=== PATIENT | male | born 1945 | race Caucasian/White ===

== ENCOUNTER 2023-06-04 14:38 | Inpatient (IN) | payer MEDICARE, OTHER, SELFPAY ==
[2023-06-04] VITALS (14 sets, daily range): BP systolic 100–130; BP diastolic 41–105; BMI 24.2
--- NOTE | 2023-06-04 10:38 | ED.GENMED ---
History of Present Illness
General
Chief Complaint: Breathing Problem
Time Seen by Provider: 06/04/23 10:31
Travel History
Have you had any contact with someone who has COVID-19?: No
Do you have any symptoms of coronavirus? Fever > 100 degrees, chills, cough, shortness of breath, sore throat, loss of taste or smell, muscle aches, or headache?: No
History of Present Illness
History of Present Illness:
78-year-old male with history of COPD and chronic kidney disease presents to the emergency department for evaluation of progressive worsening shortness of breath over the past 3 days. Reports cough has been productive. He has chronic shortness of
breath due to COPD. Breathing is worse when lying supine or with exertion. Denies chest pain, fever, chills, sweats, back pain, or leg swelling. No ill contacts at home.
Review of Systems
Review of Systems
Allergies reviewed?: Yes
All Other Systems: ROS reviewed and negative except as documented in HPI and ROS
Phy Exam
Physical Exam
Physical Exam:
GEN: Ill-appearing but no immediate distress
Eyes: PERRLA, EOMs intact, no scleral icterus
HENT: NCAT, oral mucosa moist, no JVD, no cervical adenopathy.
Lungs: Tachypneic with pursed lip breathing, arrives to exam room on oxygen. Grossly diminished breath sounds with scant expiratory wheezes
Cardiac: Mildly tachycardic, regular
Neuro: AO x 3, no focal deficits to BUE/BLE, normal sensation throughout
MSK: No gross deformity or ecchymosis. No edema. No digital clubbing
Skin: No rashes, petechiae. Normal color, no pallor or jaundice.
Psych: Calm, cooperative, proper hygiene
Scores
Heart Failure Risk
Heart Failure Risk Score: Not Applicable
Course
Orders/Labs/Results
Orders:
Orders
06/04/23 10:03
Electrocardiogram (*1) Urgent
Reason for Study: Shortness of Breath
EKG- Treatment ONCE
06/04/23 10:36
Albuterol Sulfate [Ventolin Nebules] 10 mg INH R NOW STA
Ipratropium Nebs [Atrovent Nebules] 1 mg INH R NOW STA
06/04/23 10:37
CR Chest - 2 Views Urgent
Comment:
Reason For Exam: SOB
06/04/23 11:11
COVID-19 Antigen Urgent
Source: Nasal Swab
Complete Blood Count/With Diff Urgent
Comprehensive Metabolic Panel Urgent
NT-proBNP Urgent
Troponin I Urgent
Influenza A+B Rapid Molecular Urgent
HARPREET Source: Nasal Swab
Specimen Description:
06/04/23 12:15
MethylPREDNISolone PF [Solu-Medrol Pf] 60 mg IV NOW STA
06/04/23 14:18
Admit/Transfer Patient As Directed
Co-Sign Provider:
Level of Care: Inpatient admission
Assign to:: Telemetry
Physician / Group: Олег
Diagnosis: COPD exacerbation
Reason for Telemetry: Other
Other Reason for Telemetry: Hypoxia
Date to Stop Telemetry: 06/06/23
Time to Stop Telemetry: 11:00
Reason for Hospitalization: Above
Expected length of stay greater than two midnights?: Yes
ELOS- Estimated Length of Stay in days: 2
I certify the patient meets the requirements for IP care: Yes
06/04/23 14:19
Code Status As Directed
Resuscitation Status: Full Code
06/06/23 11:00
DC Protocol for Telemetry ONCE
Abnormal Lab Results
06/04/23
11:11
WBC 13.3 H 10^3/uL
(4.8-10.8)
RBC 4.37 L 10^6/uL
(4.70-6.10)
Hct 38.6 L %
(39.0-52.0)
Abs Immat Gran (auto) 0.1 H 10^3/uL
(0-0.05)
Absolute Neuts (auto) 10.5 H 10^3/uL
(1.4-6.5)
Absolute Lymphs (auto) 1.0 L 10^3/uL
(1.2-3.4)
Absolute Monos (auto) 1.7 H 10^3/uL
(0.1-0.6)
Immature Gran % 0.7 H %
(0-0.5)
Neutrophils % 78.8 H %
(42.2-75.2)
Lymphocytes % 7.4 L %
(20.5-51.1)
Monocytes % 12.6 H %
(1.7-9.3)
Sodium 131 L mmol/L
(135-145)
BUN 30 H mg/dl
(9-20)
Creatinine 1.6 H mg/dL
(0.7-1.3)
Glucose 103 H mg/dl
(70-99)
06/04/23 11:11
06/04/23 11:11
Vital Signs
Initial and Last Documented VS:
Initial Vital Signs
Temp Pulse Resp BP Pulse Ox
98.3 F 101 22 130/105 93
06/04/23 10:00 06/04/23 10:00 06/04/23 10:00 06/04/23 10:00 06/04/23 10:00
Last Documented Vital Signs
Temp Pulse Resp BP Pulse Ox
98.3 F 91 14 121/47 92
06/04/23 10:00 06/04/23 17:30 06/04/23 17:00 06/04/23 17:00 06/04/23 17:30
MDM/Problems Addressed
MDM/Problems Addressed:
78-year-old male presents with shortness of breath. He does have scant expiratory wheezing is noted to be hypoxic on room air on arrival. Chest x-ray independently interpreted by me shows chronic changes with no acute cardiopulmonary disease.
Does have mild leukocytosis however no fever or evidence for infiltrate. Labs are otherwise reassuring, doubt cardiogenic etiology. He has no chest pain thus I do not suspect pulmonary embolism. Given his increased work of breathing we will admit
him for IV steroids and further bronchodilator treatment for acute COPD exacerbation
Comment
Comment:
EKG independently interpreted by me shows normal sinus rhythm at a rate of 89, marked limitation secondary to patient motion artifact however no gross ST changes concerning for ischemia
*Critical Care Note
Total Time (30-74mins, 75-104mins- exclusive of procedures): 30 minutes
comment:
Critical care time: 30 minutes
Critical care time was exclusive of: Separately billable procedures, treating other patients, and teaching time
Critical care was necessary to treat or prevent imminent or life-threatening deterioration of the following conditions: Acute respiratory failure with hypoxia, bronchospasm
Critical care time spent personally by me on the following activities:
[x] Review of old charts
[x] Obtaining history from patient or surrogate
[x] Ordering and review of the laboratory studies
[x] Ordering and review of radiographic studies
[x] Ordering and performing treatments and interventions
[x] Patient patient's response to treatment
[x] Development of treatment plan with patient or surrogate
ED Attending Note
-
Portions of this chart may have been created with voice recognition software.� Occasional wrong word or��sound alike� substitutions may have occurred due to the inherent limitations of voice recognition software.
Discharge Plan
Departure
Patient Disposition: Admit
Date of Disposition: 06/04/23
Time of Disposition: 12:15
Admit to: Med/Surg
Presentation/result/management discussed w/ accepting MD/DO: Hospitalist
Discharge Problem:
Asthma exacerbation in COPD
Interventions
Interventions:
*Risk Screen - Suicide Last Done: 06/04/23 13:00
*General Assessment Last Done: 06/04/23 13:00
*Neglect/Abuse Screening Last Done: 06/04/23 13:00
ED- Fall Risk Assessment Last Done: 06/04/23 13:00
*ED COVID-19 Vaccine History Last Done: 06/04/23 10:00
ED- Cardiac Assessment Last Done: 06/04/23 13:42
ED- Pulmonary Assessment Last Done: 06/04/23 11:33
[2023-06-04] MEDS: ATROVENT NEBULES 1 MG INH (11:21)
[2023-06-04] MEDS: VENTOLIN NEBULES 10 MG INH (11:23)
[2023-06-04 11:35] LABS: % Basophils 0.3 % (0-2); % Eosinophils 0.2 % (0-6); % Immature Granulocytes 0.7 % (0-0.5); % Lymphocytes 7.4 % (20.5-51.1); % Monocytes 12.6 % (1.7-9.3); % Neutrophils 78.8 % (42.2-75.2); Absolute Immature Granulocytes 0.1 10^3/uL (0-0.05); Absolute Monocytes 1.7 10^3/uL (0.1-0.6); Absolute Neutrophils 10.5 10^3/uL (1.4-6.5); Hematocrit 38.6 % (39.0-52.0); Hemoglobin 13.5 g/dL (13.0-18.0); Mean Corpuscular Hgb 30.9 pg (27.0-31.0); Mean Corpuscular Volume 88.3 fL (80.0-94.0); Mean Platelet Volume 9.5 fL (7.4-10.4); Nucleated Red Blood Cells % 0 % (-); Platelet Count 170 10^3/uL (130-400); Red Blood Cell Count 4.37 10^6/uL (4.70-6.10); Red Cell Dist. Width 13.4 % (11.5-14.5); White Blood Cell Count 13.3 10^3/uL (4.8-10.8)
[2023-06-04 11:45] LABS: ALT (SGPT) 15 U/L (0-50); AST (SGOT) 28 U/L (17-59); Albumin 4.6 g/dl (3.5-5.0); Alkaline Phosphatase 103 U/L (38-126); Blood Urea Nitrogen 30 mg/dl (9-20); Carbon Dioxide 22 mmol/L (22-30); Chloride 98 mmol/L (98-107); Glucose 103 mg/dl (70-99); Potassium 4.4 mmol/L (3.5-5.1); Sodium 131 mmol/L (135-145); Total Protein 7.7 g/dl (6.3-8.2)
[2023-06-04 11:50] LABS: COVID-19 Antigen Negative (Negative)
[2023-06-04 11:57] LABS: NT-proBNP 818 pg/ml; Troponin I 0.013 ng/ml
[2023-06-04] MEDS: SOLU-MEDROL PF 60 MG IV (13:02)
--- NOTE | 2023-06-04 14:30 | HPS.HSE ---
Family Physician
-
Family Physician: Alan Bailey
Chief Complaint
-
Shortness of breath
History of Present Illness
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 Patient reports shortness of breath with minimal exertion, productive cough
with yellow sputum. Denies any syncope, chest pain, fever.
Upon arrival to the emergency room patient found to be with increased work of breathing and hypoxia with pulse ox in the high 80s to low 90s on room air. Lung exam with with diffuse wheezing and rhonchi. He was placed on oxygen and currently on 4
L satting at the low 90s.
Patient denies any history of coronary artery disease or CHF. He smokes about a pack a day. He does not follow with liquid compounder.
Medical History
Past Medical History
Past Medical History: Reports COPD; Denies CAD or Cancer
Past Surgical History: Reports None
Social History
Tobacco: Smoker ([id number] approximately 1 pack a day.)
Alcohol: None
Drug: None
Personal:
Living: With Family
Employment: Retired
Family History
Family History: Not pertinent
Allergies / Home Medications
Allergies reflects when Allergies were last updated in [employer].
Home Medications with original date entered in [employer]
Allergy/Medication List:
Allergies
Allergy/AdvReac Type Severity Reaction Status Date / Time
No Known Allergies Allergy Verified 06/04/23 10:03
Home Medications
Metamucil 1 dose PO DAILYPRN PRN constipation 06/04/23
Review of Systems
-
A 12 point ROS was completed and negative except as noted: Yes
Respiratory: Reports See HPI
Physical Exam
Vital Signs
Vital Signs
Temp Pulse Resp BP Pulse Ox
98.3 F 118 30 111/50 90
06/04/23 10:00 06/04/23 13:07 06/04/23 13:07 06/04/23 13:07 06/04/23 13:07
Physical Exam
General: Well Developed, Well Nourished and No Apparent Distress
HEENT: NormoCephalic, Moist mucous membranes and Atraumatic
Respiratory: Wheezes and Rhonchi
Cardiac: S1/S2 and Regular Rhythm; No Murmur or Rub
GI: Soft, Non Tender, Non Distended and Normal Bowel Sounds; No Organomegaly
Rectal: Deferred by Provider
Musculoskeletal: No Clubbing, No Cyanosis and No Edema
Skin: No Rash
Neuro: Awake, Alert, Oriented, AO x 3 and Nonfocal/grossly intact
Laboratory Results
-
06/04/23 11:11
06/04/23 11:11
Laboratory Results
Total Bilirubin 1.0 mg/dl (0.2-1.3) 06/04/23 11:11
AST 28 U/L (17-59) 06/04/23 11:11
ALT 15 U/L (0-50) 06/04/23 11:11
Alkaline Phosphatase 103 U/L (38-126) 06/04/23 11:11
Troponin I 0.013 ng/ml 06/04/23 11:11
Data Reviewed
-
CT Scan: Report Reviewed by me
Lab Data: Labs Reviewed by me
Impression/Plan
-
IMPRESSION:
Acute hypoxic respiratory failure.
Acute COPD exacerbation
Acute asthmatic bronchitis.
ITALO? CKD.
Hyponatremia sodium 131
Elevated pro CHF BNP
Bilateral pulmonary nodules.
Active tobacco smoker 1 pack a day [id number]
PLAN:
Acute hypoxic respiratory failure
Presents with hypoxia and pulse ox in the upper 80s on room air.
Not on home oxygen
Suspect COPD exacerbation
Currently on 4 L of nasal cannula saturating the mid 90s.
Patient denies any chest pain.
Less likely PE.
Monitor closely pending echocardiogram and lower extremity Doppler.
If high clinical suspicion for thromboembolic disease, consider VQ scan unless creatinine improved and renal function allows CT PE
Continue oxygen supplementation
Attempt to wean off.
Acute COPD exacerbation
Chest x-ray with hyperinflation no infiltrates.
Productive cough.
Antibiotics ceftriaxone/Zithromax.
Corticosteroids Decadron.
Inhaled steroids Pulmicort
DuoNebs
Pulmonology consultation
Extensive counseled about quitting tobacco smoking.
CT scan of the chest from 04/25 with stable bilateral solid calcified and noncalcified pulmonary nodules
ITALO versus CKD.
Creatinine 1.6.
Most recent creatinine recorded 1.2.
Bladder scan for retention
Follow creatinine
Urinalysis.
Consider renal sonogram.
Check urine sodium and creatinine.
Elevated pro CHF BNP.
Not volume overloaded on presentation.
Most recent echocardiogram 11/17 with preserved biventricular function and no evidence of pulmonary hypertension
Repeat echocardiogram
Follow volume status closely.
Full code.
DVT prophylaxis heparin
[2023-06-04] MEDS: DUONEB 3 ML INH (20:16)
[2023-06-04] MEDS: PULMICORT 0.5 MG INH (20:16)
[2023-06-04] MEDS: ROCEPHIN 1000 MG IV (21:03)
[2023-06-04] MEDS: DECADRON 4 MG IV (21:04)
[2023-06-04] MEDS: ZITHROMAX 250 MG PO (21:04)
[2023-06-04] MEDS: STERILE WATER FOR INJECTION 10 ML IV (21:04)
[2023-06-04] MEDS: HEPARIN 5000 UNITS SC (21:04)
[2023-06-04] MEDS: MUCINEX 600 MG PO (21:04)
[2023-06-04 21:41] LABS: Glucose - Point of Care 202 mg/dl (70-99)
[2023-06-04] MEDS: NOVOLOG FLEXPEN-LOW RESISTANCE 300 UNITS SC (21:42)
[2023-06-05] MEDS: HEPARIN SC (00:36)
[2023-06-05 03:37] VITALS: BP 117/63
[2023-06-05] MEDS: DECADRON 4 MG IV ×4 (04:15→21:02)
[2023-06-05 04:50] LABS: % Basophils 0.1 % (0-2); % Lymphocytes 4.8 % (20.5-51.1); % Monocytes 5.3 % (1.7-9.3); % Neutrophils 88.8 % (42.2-75.2); Absolute Immature Granulocytes 0.2 10^3/uL (0-0.05); Absolute Lymphocytes 0.7 10^3/uL (1.2-3.4); Absolute Monocytes 0.8 10^3/uL (0.1-0.6); Hemoglobin 13.1 g/dL (13.0-18.0); Mean Corp Hgb Conc. 35.4 g/dL (33.0-37.0); Mean Corpuscular Hgb 30.5 pg (27.0-31.0); Mean Corpuscular Volume 86.2 fL (80.0-94.0); Mean Platelet Volume 9.6 fL (7.4-10.4); Nucleated Red Blood Cells % 0 % (-); Platelet Count 166 10^3/uL (130-400); Red Blood Cell Count 4.29 10^6/uL (4.70-6.10); Red Cell Dist. Width 13.3 % (11.5-14.5); White Blood Cell Count 14.7 10^3/uL (4.8-10.8)
[2023-06-05 05:04] LABS: Urine Sodium 24 mmol/L (30-90)
[2023-06-05 05:16] LABS: Blood Urea Nitrogen 36 mg/dl (9-20); Calcium 9.2 mg/dl (8.4-10.2); Carbon Dioxide 20 mmol/L (22-30); Chloride 99 mmol/L (98-107); Estimated Creatinine Clearance 58 ml/min; Glucose 144 mg/dl (70-99); Sodium 133 mmol/L (135-145); eGFR > 60.00
[2023-06-05 05:17] LABS: Urine Albumin Trace (Neg - Trace); Urine Bilirubin Negative (Negative); Urine Character Slightly Cloudy (Clear); Urine Color Yellow; Urine Glucose 1+ (Negative); Urine Ketone Negative (Negative); Urine Leukocyte Negative (Negative); Urine Nitrite Positive (Negative); Urine Occult Blood 2+ (Negative); Urine Specific Gravity 1.015 (<1.030); Urine Urobilinogen Negative (Neg - 1+)
[2023-06-05 06:19] LABS: Urine Amorphous Seen; Urine Bacteria Few (Negative)
[2023-06-05] MEDS: PULMICORT 0.5 MG INH ×2 (07:08→19:32)
[2023-06-05] MEDS: DUONEB 3 ML INH ×4 (07:08→19:32)
[2023-06-05 07:30] VITALS: BP 117/61
[2023-06-05 07:36] LABS: Glucose - Point of Care 141 mg/dl (70-99)
[2023-06-05] MEDS: NOVOLOG FLEXPEN-LOW RESISTANCE SC (07:58)
[2023-06-05 08:56] LABS: Glycohemoglobin (HgbA1c) 5.8 % (4.0-5.6)
--- NOTE | 2023-06-05 09:01 | W.PN.HOSP.TC ---
Addendum entered and electronically signed by Bear Denney MD 06/05/23 16:48:
Patient seen and examined
Discussed with resident
Impression/plan:
Acute hypoxic respiratory failure secondary to COPD exacerbation
Acute COPD exacerbation
Tobacco use disorder with ongoing smoking 1 pack a day.
ITALO secondary to dehydration improved with IV fluid bolus
Euvolemic�hypovolemic hyponatremia improved.
Elevated pro CHF BNP with normal biventricular function on echocardiogram
Continue current therapy with antibiotics, corticosteroids, inhaled steroids and bronchodilators.
Oxygen requirements remain high after 5 to 6 L nasal cannula.
Attempt to wean off
If remains hypoxic, would consider further evaluation with contrasted CT PE protocol.
Nicotine patch
Original Note:
Today's Communication/Plan
-
Creatinine back to baseline.
Continue antibiotics.
Continue mucolytic's, DuoNeb,oxygen supplementation, high flow oxygen if necessary, may need BiPAP.
Monitor respiratory status closely.
Assessment / Plan
Assessment / Plan
-
IMPRESSION:
Acute hypoxic respiratory failure.
Acute COPD exacerbation
Acute asthmatic bronchitis.
ITALO?� CKD.
Hyponatremia sodium 131
Elevated pro CHF BNP
Bilateral pulmonary nodules.
Active tobacco smoker 1 pack a day [id number]
PLAN:
Acute hypoxic respiratory failure
-Presents with hypoxia and pulse ox in the upper 80s on room air.
-Increasing oxygen requirement from 4 L to 6 L nasal cannula, saturating at mid 90s.
-Lower extremity Doppler with no evidence of venous thrombosis, echo with new moderate aortic stenosis and preserved ejection fraction.
-Suspect COPD exacerbation, less likely PE given negative lower extremity Doppler.
-Consider ABG with no sign of hypercapnia on BMP.
-If high clinical suspicion for thromboembolic disease, consider CT pulmonary angiography given normalized creatinine.
-Continue oxygen supplementation, high flow oxygen if necessary, may need BiPAP.
-Attempt to wean off as tolerated.
Acute COPD exacerbation
-CT chest 04/25 with stable, multiple bilateral pulmonary nodules, followed by Dr. Bailey.
-Chest x-ray with hyperinflation no infiltrates.
-Productive cough, continue mucolytics.
-Incentive spirometry.
-Consider chest physiotherapy and fast if difficulties mobilizing secretions
-Antibiotics ceftriaxone/Zithromax.
-Corticosteroids Decadron.
-Inhaled steroids Pulmicort.
-DuoNebs
-Acapella
-Pulmonology evaluation appreciated.
-Extensive counseled about quitting tobacco smoking.
Leukocytosis
-Continue antibiotics.
ITALO versus CKD.
-Creatinine trended down to baseline 1.1, was 1.6 yesterday.
-Bladder scan for retention
-Urinalysis with urine creatinine of 99 high urine sodium of 24 indicating optimize renal function with mild volume contraction.
-Consider renal sonogram.
Elevated pro CHF BNP.
-Not volume overloaded on presentation.
-Most recent echocardiogram 11/17 with preserved biventricular function and no evidence of pulmonary hypertension
-Repeat echocardiogram with normal left ventricular size, wall thickness, systolic function with mild aortic stenosis but preserved LV EF.
-Follow volume status closely.
-PT/OT
Full code.
DVT prophylaxis heparin
Anticipated Discharge: 24 - 48 hours
Subjective/Interval History
-
Date of Service: June 05, 2023
Objective Data
-
Labs:
Laboratory Results
06/05/23
04:22
WBC 14.7 H
Hgb 13.1
Hct 37.0 L
Plt Count 166
Sodium 133 L
Potassium 4.0
Chloride 99
Carbon Dioxide 20 L
BUN 36 H
Creatinine 1.1
Glucose 144 H
Calcium 9.2
Vital Signs:
Vital Signs
Temp Pulse Resp BP Pulse Ox
97.7 F 73 20 117/63 94
06/05/23 03:37 06/05/23 07:13 06/05/23 07:13 06/05/23 03:37 06/05/23 07:13
I&O
06/04/23 06/05/23 06/06/23
06:59 06:59 06:59
Intake Total 240 / 240
Output Total 400 / 400
Balance -160 / -160
Review of Systems
-
History Source: Patient
All other systems: Not reviewed unless documented
Constitutional: Reports No Symptoms; Denies Fever
EENT: Reports No Symptoms Reported
Respiratory: Reports No Symptoms
Cardiac: Reports No Symptoms; Denies Chest Pain or Palpitations
Abdomen/GI: Reports No Symptoms; Denies Abdominal Pain, Diarrhea or Constipated
Genitourinary: Reports No Symptoms
Physical Exam
-
General: Well Developed, Well Nourished and No Apparent Distress
Respiratory: Clear to Auscultation and Decreased Breath Sounds
Cardiac: S1/S2 and Murmur (2/6 systolic murmur); Negative Rub
GI: Soft, Nontender, Nondistended and Normal Bowel Sounds
Genito-urinary: Negative No Costovertebral Tender
Musculoskeletal: No Clubbing and No Cyanosis; Negative No Edema
Skin: Warm and Dry
Neuro: Awake, Alert and AO x 3
Psych: Calm and Intact Judgement/Insight
Data Reviewed
-
Diagnostic Radiology: Image personally visualized and interpreted, Report Reviewed by me and Discussed with Physician
Ultrasound: Image personally visualized and interpreted, Report Reviewed by me and Discussed with Physician
Medical Tests (Nuc Med, Echo etc): Report Reviewed by me and Discussed with Physician
Labs: Labs Reviewed by me and Discussed with Physician
Old Records: Reviewed
[2023-06-05] MEDS: ZITHROMAX 250 MG PO (10:01)
[2023-06-05] MEDS: MUCINEX 600 MG PO (10:01)
[2023-06-05] MEDS: HEPARIN 5000 UNITS SC ×2 (10:04→17:25)
[2023-06-05] MEDS: FLUSH (NSS) 1 FLUSH IV (10:04)
--- NOTE | 2023-06-05 10:52 | CON.PUL ---
Consultation
Consultation Request
Date/Time Consultation Requested: 06/05/2023-7 AM
Date/Time Consultation Performed: 06/05/1943-8 AM
Requesting Provider: Hospitalist
Performing Provider: Dr. Robins
Reason for Consultation: COPD
Medical History
-
Chief Complaint: Shortness of breath
History of Present Illness:
78-year-old male active smoker with probable underlying COPD presented with increasing shortness of breath felt to have a significant COPD exacerbation and pulmonary was consulted for COPD exacerbation 06/05/2023. He feels improved from last evening.
He continues to have significant shortness of breath. He does not have any chest pain, pleurisy, chest congestion, productive cough, abdominal pain, nausea, leg swelling or weakness.
Past Medical History
Past Medical History: None (COPD. Active smoker. Denies CAD, renal, gastrointestinal neurologic disease or cancers)
Social History
Tobacco: Smoker ([id number])
Alcohol: None
Drug: None
Personal:
Living: With Family
Employment: Retired (Teacher)
Occupational Exposures: No known asbestos exposure
Environmental Exposures: No known tuberculosis exposure
Family History
Family History: Reviewed & Not Pertinent
Allergies / Home Medications
Allergies
Allergy/AdvReac Type Severity Reaction Status Date / Time
No Known Allergies Allergy Verified 06/04/23 10:03
Home Medications
Medication Instructions Recorded Confirmed Last Taken Type
Metamucil 1 dose PO DAILYPRN PRN constipation 06/04/23 06/04/23 3 Days Ago History
~06/01/23
Review of Systems
-
Unable to Obtain full review of systems at this time due to: Other (Per HPI)
Vitals / Labs / Diagnostic Testing
Vital Signs
Temp Pulse Resp BP Pulse Ox
97.9 F 90 16 117/61 91
06/05/23 07:30 06/05/23 07:30 06/05/23 07:30 06/05/23 07:30 06/05/23 07:30
Lab Data
06/05/23 04:22
06/05/23 04:22
Microbiology
06/04/23 11:11 Nasal Swab Influenza Types A & B (KAREN) - Final
Negative for Influenza A & B, NAAT
Negative results must be combined with clinical observations
and patient history.
Nucleic Acid Amplification test (NAAT)performed on the
[employer] platform.
Diagnostic Testing:
Physical Exam
-
Exam:
Per HPI f well-nourished and well-developed in no apparent distress
HEENT-atraumatic, normocephalic
Neck-supple, no JVD, no bruit
Heart-regular rate and rhythm-no murmurs, rubs or gallops
Chest with diminished breath sounds, prolonged expiratory time, forced wheezes and rare crackles
Back without CVA tenderness
Abdomen-soft, nontender, nondistended, no hepatosplenomegaly
Extremities-no cyanosis, clubbing, edema and good peripheral pulses
Integument-intact, no rashes, lesions or ecchymosis
Neurology-alert and oriented, nonfocal motor and sensory exam
Assessment
-
78-year-old male active smoker with probable underlying COPD presented with increasing shortness of breath felt to have a significant COPD exacerbation and pulmonary was consulted for COPD exacerbation 06/05/2023.
Assessment
COPD with acute exacerbation
Leukocytosis
Hyponatremia-serum sodium 131
ITALO-serum creatinine 1.6
Hyperglycemia-blood sugar 144-A1c 5.8
Conditions present prior to admission:
COPD
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
Active smoker
Hyperplastic polyp in sigmoid
Plan
Patient requires admission for severe COPD exacerbation and respiratory failure
Supplemental oxygen as needed
Consider ABG-no signs of chronic hypercapnia on BMP
BiPAP if needed
High flow oxygen if appropriate
Duonebs
Pulmicort nebulizers
Mucolytic's
Decadron 4 mg IV every 6 hours
Incentive spirometry
Acapella
Consider vest if difficulties mobilizing secretions
Consider chest physiotherapy if difficulties mobilizing secretions
Check cultures
Empiric antibiotics if acute bacterial bronchitis or acute bacterial lower respiratory tree infection is suspected-Rocephin and azithromycin initiated
Monitor leukocytosis
Monitor blood sugars
Insulin supplementation as needed
Smoking cessation counseling provided
DVT prophylaxis-on subcu heparin
GI prophylaxis recommended if on steroids for prolonged period
Early nutrition
Early mobilization
Reviewed with nursing as well as at the bedside
Outpatient pulmonary [id number] PFTs, ongoing smoking cessation counseling, pulmonary rehabilitation, as well as yearly low-dose lung cancer screening CT while eligible
Diagnostic data:
Chest x-ray 06/04/2023- NAD
CT chest 10/17/2021-scattered bilateral tiny pulmonary nodules, stable COPD changes, chronic mild T7 compression deformity
CT chest low-dose 04/06/2023-stable bilateral solid calcified and noncalcified pulmonary nodules, moderate COPD, moderate compression fracture slightly progressed
Ultrasound 06/05/2023Lower extremity-no DVT
Echocardiogram 11/09/2017-EF 55-60%, normal diastolic function, aortic sclerosis without stenosis
Data Reviewed
-
EKG: Report reviewed by me
Radiology: Report reviewed by me
CT Scan: Report reviewed by me
Medical Tests (Nuc Med, Echo etc): Report reviewed by me
Labs: Labs reviewed by me
Old Records: Reviewed
Total Time Spent with Patient (in minutes): 55
[2023-06-05 11:28] VITALS: BP 136/104
[2023-06-05 11:43] LABS: Glucose - Point of Care 208 mg/dl (70-99)
[2023-06-05] MEDS: NOVOLOG FLEXPEN-LOW RESISTANCE 2 UNITS SC (13:35)
[2023-06-05 15:03] VITALS: BP 134/80
[2023-06-05 16:26] LABS: Glucose - Point of Care 195 mg/dl (70-99)
[2023-06-05] MEDS: NOVOLOG FLEXPEN-LOW RESISTANCE 1 UNITS SC (17:21)
[2023-06-05] MEDS: NICODERM TRANSDERMAL 21 MG TRANSDERM (17:31)
[2023-06-05 19:31] VITALS: BP 139/74
[2023-06-05] MEDS: STERILE WATER FOR INJECTION 10 ML IV (21:02)
[2023-06-05] MEDS: MUCINEX 1200 MG PO (21:02)
[2023-06-05] MEDS: ROCEPHIN 1000 MG IV (21:02)
[2023-06-05 21:10] LABS: Glucose - Point of Care 231 mg/dl (70-99)
[2023-06-05 23:14] VITALS: BP 111/69
[2023-06-06] MEDS: HEPARIN 5000 UNITS SC ×4 (00:21→22:54)
[2023-06-06] MEDS: DECADRON 4 MG IV ×4 (04:22→22:18)
[2023-06-06 04:52] VITALS: BP 125/62
[2023-06-06] MEDS: PULMICORT 0.5 MG INH ×2 (07:30→19:52)
[2023-06-06] MEDS: DUONEB 3 ML INH ×4 (07:30→19:51)
[2023-06-06 07:36] VITALS: BP 119/70
[2023-06-06 07:50] LABS: Glucose - Point of Care 162 mg/dl (70-99)
[2023-06-06 08:13] LABS: % Basophils 0.1 % (0-2); % Immature Granulocytes 2.3 % (0-0.5); % Lymphocytes 4.4 % (20.5-51.1); % Monocytes 4.3 % (1.7-9.3); % Neutrophils 88.9 % (42.2-75.2); Absolute Immature Granulocytes 0.5 10^3/uL (0-0.05); Absolute Lymphocytes 0.9 10^3/uL (1.2-3.4); Absolute Monocytes 0.8 10^3/uL (0.1-0.6); Absolute Neutrophils 17.5 10^3/uL (1.4-6.5); Hematocrit 36.5 % (39.0-52.0); Hemoglobin 13.2 g/dL (13.0-18.0); Mean Corp Hgb Conc. 36.2 g/dL (33.0-37.0); Mean Corpuscular Hgb 30.9 pg (27.0-31.0); Mean Corpuscular Volume 85.5 fL (80.0-94.0); Mean Platelet Volume 9.9 fL (7.4-10.4); Nucleated Red Blood Cells % 0 % (-); Platelet Count 198 10^3/uL (130-400); Red Blood Cell Count 4.27 10^6/uL (4.70-6.10); Red Cell Dist. Width 13.2 % (11.5-14.5); White Blood Cell Count 19.6 10^3/uL (4.8-10.8)
--- NOTE | 2023-06-06 08:33 | W.PN.PUL.V3 ---
Today's Communication / Plan
-
.
Continue high-dose intravenous steroids.
Attempt to wean oxygen.
Assess discharge. Supplemental oxygen needs.
Consider physical therapy evaluation.
Continue antibiotics.
Smoking cessation counseling ongoing
Assessment
-
78-year-old male active smoker with probable underlying COPD presented with increasing shortness of breath felt to have a significant COPD exacerbation and pulmonary was consulted for COPD exacerbation 06/05/2023.
Assessment
COPD Gold stage III with acute exacerbation
Leukocytosis
Hyponatremia-serum sodium 131
ITALO-serum creatinine 1.6
Hyperglycemia-blood sugar 144-A1c 5.8
Conditions present prior to admission:
COPD
Multiple bilateral pulmonary nodules followed by Dr. 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
Active smoker
Hyperplastic polyp in sigmoid
Plan
Patient requires admission for severe COPD exacerbation and respiratory failure
Supplemental oxygen as needed-assess discharge supplemental oxygen needs
BiPAP if needed
Duonebs continue
Pulmicort nebulizers
Mucolytic's
Decadron 4 mg IV every 6 hours-begin to taper the next 24 hours
Incentive spirometry
Acapella
Consider vest if difficulties mobilizing secretions
Consider chest physiotherapy if difficulties mobilizing secretions.
Bedside spirometry 06/06/23-FEV1 1.29-42%, FVC 2.7 to-64%, moderate to severe obstruction
Cultures reviewed
Empiric antibiotics if acute bacterial bronchitis or acute bacterial lower respiratory tree infection is suspected-Rocephin and azithromycin initiated.
Follow leukocytosis
Follow blood sugars
Insulin supplementation as needed
Smoking cessation counseling ongoing
DVT prophylaxis-on subcutaneous heparin
GI prophylaxis recommended if on steroids for prolonged period
Begin nutrition.
Physical therapy
Reviewed with nursing as well as at the bedside
Outpatient pulmonary [id number] PFTs, ongoing smoking cessation counseling, pulmonary rehabilitation, as well as yearly low-dose lung cancer screening CT while eligible
Diagnostic data:
Chest x-ray 06/04/2023- NAD
CT chest 10/17/2021-scattered bilateral tiny pulmonary nodules, stable COPD changes, chronic mild T7 compression deformity
CT chest low-dose 04/06/2023-stable bilateral solid calcified and noncalcified pulmonary nodules, moderate COPD, moderate compression fracture slightly progressed
Ultrasound 06/05/2023Lower extremity-no DVT
Echocardiogram 11/09/2017-EF 55-60%, normal diastolic function, aortic sclerosis without stenosis
Bedside spirometry 06/06/23-FEV1 1.29-42%, FVC 2.7 to-64%, moderate to severe obstruction
Subjective Data
-
Date of Service:
Date of Service: June 06, 2023
Chief Complaint: Pulmonary Follow Up and Dyspnea Follow Up
Subjective:
Feels a little better, still dyspnea with minimal exertion, no chest pain, some wheezing, no abdominal pain
Review of Systems
General: Other ( per HPI)
Objective Data
Data Reviewed
Vital Signs / I&O:
Vital Signs
Temp Pulse Resp BP Pulse Ox
97.5 F 82 20 125/62 92
06/06/23 04:52 06/06/23 07:33 06/06/23 07:33 06/06/23 04:52 06/06/23 07:33
Intake and Output
06/05/23 06/06/23 06/07/23
06:59 06:59 06:59
Intake Total 240 / 240 1500 / 1500
Output Total 400 / 400 2125 / 2125
Balance -160 / -160 -625 / -625
SaO2: 92
Nasal Cannula flow liters per minute: 6
Physical Exam
General: Respiratory Distress (n) and Comfortable
HEENT: Normocephalic, Anicteric and Moist Mucous Membranes
Cardiovascular: Regular Rhythm
Respiratory: Wheeze ( forced expiratory), Crackles ( rare basilar), Rhonchi (n), Non-Labored Respirations, Accessory Resp Muscle Use (n) and Stridor (n)
GI: Soft, Non Distended and Non Tender
Neurology: Awake, Alert and No Motor Deficits
Skin: Warm, Good Color, Cyanosis (n) and Jaundice (n)
Labs/Micro/Reports
Microbiology
06/04/23 11:11 Nasal Swab Influenza Types A & B (KAREN) - Final
Negative for Influenza A & B, NAAT
Negative results must be combined with clinical observations
and patient history.
Nucleic Acid Amplification test (NAAT)performed on the
[employer] platform.
[2023-06-06] MEDS: NOVOLOG FLEXPEN-LOW RESISTANCE 1 UNITS SC ×3 (10:12→17:58)
[2023-06-06] MEDS: MUCINEX 1200 MG PO ×2 (10:12→21:00)
[2023-06-06] MEDS: NICODERM TRANSDERMAL 21 MG TRANSDERM (10:12)
[2023-06-06] MEDS: ZITHROMAX 250 MG PO (10:13)
[2023-06-06 10:53] LABS: Blood Urea Nitrogen 33 mg/dl (9-20); Calcium 9.3 mg/dl (8.4-10.2); Carbon Dioxide 20 mmol/L (22-30); Chloride 99 mmol/L (98-107); Estimated Creatinine Clearance 71 ml/min; Glucose 129 mg/dl (70-99); Potassium 4.1 mmol/L (3.5-5.1); Sodium 133 mmol/L (135-145); eGFR > 60.00
[2023-06-06 11:09] VITALS: BP 143/78
[2023-06-06 11:25] LABS: Glucose - Point of Care 165 mg/dl (70-99)
[2023-06-06 12:35] LABS: D-Dimer 0.48 ug/mlFEU (0.00-0.50)
--- NOTE | 2023-06-06 12:56 | W.PN.HOSP.TC ---
Addendum entered and electronically signed by Bear Denney MD 06/06/23 16:22:
Patient seen and examined
Discussed with resident
Impression/plan:
Acute hypoxic respiratory failure multifactorial due to:
Severe emphysema with COPD exacerbation
Bilateral pneumonia/groundglass infiltrates.
Acute kidney injury improved with volume expansion
Euvolemic/hypovolemic hyponatremia improved.
Elevated pro CHF BNP with preserved biventricular function on echocardiogram.
Respiratory status remains tenuous with higher oxygen requirements currently on 6 L.
Exam with diffuse rhonchi and biphasic wheezing.
CT scan of the chest negative for pulmonary embolism although revealing bilateral groundglass infiltrate.
Speech and swallow evaluation.
Expand antibiotic spectrum with addition of Zosyn replacing ceftriaxone. Continue Zithromax
Continue corticosteroids dosed to be unchanged for another 24 to 48 hours.
Continue nebulizers.
Continue Pulmicort.
Attempt to wean off oxygen as tolerates.
Original Note:
Today's Communication/Plan
-
Continue current therapy with antibiotics, inhaled steroids, corticosteroids, bronchodilators, nicotine patch.
Patient remained hypoxic with continued higher oxygen requirements with O2 sat 91 at 6 L NC.
Normal D-dimer, CT scan and Doppler unremarkable. CT PE protocol to rule out subclinical PE.
Will try to wean off O2 as tolerated.
ITALO improved with creatinine at baseline with IV fluid bolus.
Nicotine patch
Assessment / Plan
Assessment / Plan
-
IMPRESSION:
Acute hypoxic respiratory failure.
Acute COPD exacerbation
Acute asthmatic bronchitis.
ITALO?� CKD.
Hyponatremia sodium 131
Elevated pro CHF BNP
Bilateral pulmonary nodules.
Active tobacco smoker 1 pack a day [id number]
PLAN:
Acute hypoxic respiratory failure
-Presents with hypoxia and pulse ox in the upper 80s on room air.
-Lower extremity Doppler with no evidence of venous thrombosis, echo with new moderate aortic stenosis and preserved ejection fraction.
-Suspect COPD exacerbation, less likely PE given negative lower extremity Doppler, CT of chest.
-Normal D-dimer.
-CT PE protocol given patient's continued wheezing with therapy, and increasing oxygen requirement from 4 L to 6 L nasal cannula, while saturating at low 90s.
-Consider ABG with no sign of hypercapnia on BMP.
-Continue antibiotics, steroids, DuoNeb.
-Continue oxygen supplementation, high flow oxygen if necessary, may need BiPAP.
-Attempt to wean off as tolerated.
Acute COPD exacerbation
-CT chest 04/25 with stable, multiple bilateral pulmonary nodules, followed by Dr. Bailey.
-Chest x-ray with hyperinflation no infiltrates.
-Productive cough, continue mucolytics.
-Incentive spirometry.
-Consider chest physiotherapy and fast if difficulties mobilizing secretions
-Antibiotics ceftriaxone/Zithromax.
-Corticosteroids Decadron.
-Inhaled steroids Pulmicort.
-DuoNebs
-Acapella
-Pulmonology evaluation appreciated.
-Extensive counseled about quitting tobacco smoking.
Leukocytosis
-Most likely due to corticosteroids.
-Continue antibiotics.
ITALO versus CKD.
-Creatinine now stable at baseline 0.9.
-Bladder scan for retention
-Urinalysis with urine creatinine of 99 high urine sodium of 24 indicating optimize renal function with mild volume contraction.
-Consider renal sonogram.
Elevated pro CHF BNP.
-Not volume overloaded on presentation.
-Most recent echocardiogram 11/17 with preserved biventricular function and no evidence of pulmonary hypertension
-Repeat echocardiogram with normal left ventricular size, wall thickness, systolic function with mild aortic stenosis but preserved LV EF.
-Follow volume status closely.
-PT/OT
Full code.
DVT prophylaxis heparin
Anticipated Discharge: > 48 hours
Subjective/Interval History
-
Date of Service: June 06, 2023
Objective Data
-
Labs:
Laboratory Results
06/06/23
07:45
WBC 19.6 H
Hgb 13.2
Hct 36.5 L
Plt Count 198
Sodium 133 L
Potassium 4.1
Chloride 99
Carbon Dioxide 20 L
BUN 33 H
Creatinine 0.9
Glucose 129 H
Calcium 9.3
Vital Signs:
Vital Signs
Temp Pulse Resp BP Pulse Ox
97.4 F 93 22 143/78 91
06/06/23 11:09 06/06/23 12:11 06/06/23 12:11 06/06/23 11:09 06/06/23 12:11
I&O
06/05/23 06/06/23 06/07/23
06:59 06:59 06:59
Intake Total 240 / 240 1500 / 1500
Output Total 400 / 400 2125 / 2125
Balance -160 / -160 -625 / -625
Review of Systems
-
History Source: Patient
All other systems: Not reviewed unless documented
Constitutional: Reports No Symptoms; Denies Fever
EENT: Reports No Symptoms Reported
Respiratory: Reports No Symptoms
Cardiac: Reports No Symptoms; Denies Chest Pain or Palpitations
Abdomen/GI: Reports No Symptoms; Denies Abdominal Pain, Diarrhea or Constipated
Genitourinary: Reports No Symptoms
Physical Exam
-
General: Well Developed, Well Nourished and No Apparent Distress
Respiratory: Clear to Auscultation, Wheezes (Mild end expiratory wheezes lower right lobes) and Decreased Breath Sounds
Cardiac: S1/S2 and Murmur (2/6 systolic murmur); Negative Rub
GI: Soft, Nontender, Nondistended and Normal Bowel Sounds
Genito-urinary: Negative No Costovertebral Tender
Musculoskeletal: No Clubbing and No Cyanosis; Negative No Edema
Skin: Warm and Dry
Neuro: Awake, Alert and AO x 3
Psych: Calm and Intact Judgement/Insight
Data Reviewed
-
Diagnostic Radiology: Image personally visualized and interpreted, Report Reviewed by me and Discussed with Physician
Ultrasound: Image personally visualized and interpreted, Report Reviewed by me and Discussed with Physician
Medical Tests (Nuc Med, Echo etc): Report Reviewed by me and Discussed with Physician
Labs: Labs Reviewed by me and Discussed with Physician
Old Records: Reviewed
[2023-06-06 15:06] VITALS: BP 138/77
--- NOTE | 2023-06-06 15:55 | CM ---
Patient seen bedside, initial assessment completed. Patient reports he resides independently at [facility], later mentions he lives with his . Patient denies the use of DME, VN, or SNF. Patient currently on O2, not on home O2. Patient
confirms PCP Alan Bailey, [facility]. CM will continue to follow for discharge planning needs.
Plan; home no needs vs VN, watch for home O2 needs.
[2023-06-06 16:32] LABS: Glucose - Point of Care 162 mg/dl (70-99)
[2023-06-06] MEDS: ZOSYN 50 IV ×2 (17:33→22:54)
[2023-06-06 19:43] VITALS: BP 133/72
[2023-06-06 21:01] LABS: Glucose - Point of Care 190 mg/dl (70-99)
[2023-06-06] MEDS: STERILE WATER FOR INJECTION IV (22:18)
[2023-06-06 23:04] VITALS: BP 110/50
[2023-06-07] MEDS: DECADRON 4 MG IV ×4 (03:30→23:29)
[2023-06-07 03:48] VITALS: BP 97/64
[2023-06-07] MEDS: ZOSYN 50 IV ×4 (05:10→23:29)
[2023-06-07 07:00] VITALS: BP 128/76
[2023-06-07 07:56] LABS: % Lymphocytes 6.6 % (20.5-51.1); % Monocytes 4.6 % (1.7-9.3); % Neutrophils 87.8 % (42.2-75.2); Absolute Immature Granulocytes 0.1 10^3/uL (0-0.05); Absolute Lymphocytes 0.8 10^3/uL (1.2-3.4); Absolute Monocytes 0.6 10^3/uL (0.1-0.6); Absolute Neutrophils 11.1 10^3/uL (1.4-6.5); Hematocrit 35.6 % (39.0-52.0); Hemoglobin 12.6 g/dL (13.0-18.0); Mean Corp Hgb Conc. 35.4 g/dL (33.0-37.0); Mean Corpuscular Hgb 30.7 pg (27.0-31.0); Mean Corpuscular Volume 86.6 fL (80.0-94.0); Mean Platelet Volume 9.8 fL (7.4-10.4); Nucleated Red Blood Cells % 0 % (-); Platelet Count 204 10^3/uL (130-400); Red Blood Cell Count 4.11 10^6/uL (4.70-6.10); Red Cell Dist. Width 13.2 % (11.5-14.5); White Blood Cell Count 12.6 10^3/uL (4.8-10.8)
[2023-06-07] MEDS: PULMICORT 0.5 MG INH ×2 (08:06→19:16)
[2023-06-07] MEDS: DUONEB 3 ML INH ×4 (08:06→19:16)
[2023-06-07 08:35] LABS: Blood Urea Nitrogen 24 mg/dl (9-20); Calcium 8.8 mg/dl (8.4-10.2); Carbon Dioxide 23 mmol/L (22-30); Chloride 106 mmol/L (98-107); Estimated Creatinine Clearance 71 ml/min; Glucose 135 mg/dl (70-99); Potassium 4.4 mmol/L (3.5-5.1); Sodium 133 mmol/L (135-145); eGFR > 60.00
[2023-06-07 08:52] LABS: Glucose - Point of Care 131 mg/dl (70-99)
[2023-06-07] MEDS: NOVOLOG FLEXPEN-LOW RESISTANCE SC (08:56)
[2023-06-07] MEDS: NICODERM TRANSDERMAL 21 MG TRANSDERM (09:18)
[2023-06-07] MEDS: ZITHROMAX 250 MG PO (09:18)
[2023-06-07] MEDS: MUCINEX 1200 MG PO ×2 (09:18→20:00)
[2023-06-07] MEDS: HEPARIN 5000 UNITS SC ×3 (09:19→23:29)
--- NOTE | 2023-06-07 09:52 | W.PN.PUL.V3 ---
Today's Communication / Plan
-
.
Wean oxygen.
Assess discharge. Supplemental oxygen needs.
Begin to reduce Decadron.
Continue antibiotics and nebulizers as well as mucolytics
Assessment
-
78-year-old male active smoker with probable underlying COPD presented with increasing shortness of breath felt to have a significant COPD exacerbation and pulmonary was consulted for COPD exacerbation 06/05/2023.
Assessment
COPD Gold stage III with acute exacerbation
Leukocytosis
Hyponatremia-serum sodium 131
ITALO-serum creatinine 1.6
Hyperglycemia-blood sugar 144-A1c 5.8
Conditions present prior to admission:
COPD
Multiple bilateral pulmonary nodules followed by Dr. 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
Active smoker
Hyperplastic polyp in sigmoid
Plan
Patient requires admission for severe COPD exacerbation and respiratory failure
Supplemental oxygen as needed-assess discharge supplemental oxygen needs
BiPAP if needed -has not needed
Duonebs continue in addition to Pulmicort nebulizers
Mucolytic's
Decadron 4 mg IV every 6 hours--changed to every 8 hours
Incentive spirometry
Acapella
Bedside spirometry 06/06/23-FEV1 1.29-42%, FVC 2.7 to-64%, moderate to severe obstruction
Cultures reviewed
Empiric antibiotics- Rocephin and azithromycin initiated-now on Zosyn
Follow leukocytosis
Follow blood sugars
Insulin supplementation as needed
Smoking cessation counseling ongoing.
Nicotine patch
DVT prophylaxis-on subcutaneous heparin
GI prophylaxis recommended if on steroids for prolonged period
Nutrition
Increased mobility
Nursing
Outpatient pulmonary [id number] PFTs, ongoing smoking cessation counseling, pulmonary rehabilitation, as well as yearly low-dose lung cancer screening CT while eligible
Diagnostic data:
Chest x-ray 06/04/2023- NAD
CT chest 10/17/2021-scattered bilateral tiny pulmonary nodules, stable COPD changes, chronic mild T7 compression deformity
CT chest low-dose 04/06/2023-stable bilateral solid calcified and noncalcified pulmonary nodules, moderate COPD, moderate compression fracture slightly progressed
Ultrasound 06/05/2023Lower extremity-no DVT
Echocardiogram 11/09/2017-EF 55-60%, normal diastolic function, aortic sclerosis without stenosis
Bedside spirometry 06/06/23-FEV1 1.29-42%, FVC 2.7 to-64%, moderate to severe obstruction
Subjective Data
-
Date of Service:
Date of Service: June 07, 2023
Chief Complaint: Pulmonary Follow Up and Dyspnea Follow Up
Subjective:
Beginning to ambulate, has dyspnea on exertion, still has some wheezing, no chest pain, occasional cough, no abdominal pain
Review of Systems
General: Other ( per HPI)
Objective Data
Data Reviewed
Vital Signs / I&O:
Vital Signs
Temp Pulse Resp BP Pulse Ox
97.7 F 105 18 128/76 94
06/07/23 07:00 06/07/23 08:09 06/07/23 08:09 06/07/23 07:00 06/07/23 08:09
Intake and Output
06/06/23 06/07/23 06/08/23
06:59 06:59 06:59
Intake Total 1500 / 1500 2140 / 2140
Output Total 2125 / 2125 1450 / 1450
Balance -625 / -625 690 / 690
SaO2: 94
Nasal Cannula flow liters per minute: 6
Physical Exam
General: Respiratory Distress (n) and Comfortable
HEENT: Normocephalic, Anicteric and Moist Mucous Membranes
Cardiovascular: Regular Rhythm
Respiratory: Wheeze ( forced expiratory), Crackles ( rare basilar), Rhonchi (n), Non-Labored Respirations, Accessory Resp Muscle Use (n) and Stridor (n)
GI: Soft, Non Distended and Non Tender
Neurology: Awake, Alert and No Motor Deficits
Skin: Warm, Good Color, Cyanosis (n) and Jaundice (n)
Labs/Micro/Reports
Lab Data
06/07/23 07:34
06/07/23 07:34
Microbiology
06/04/23 11:11 Nasal Swab Influenza Types A & B (KAREN) - Final
Negative for Influenza A & B, NAAT
Negative results must be combined with clinical observations
and patient history.
Nucleic Acid Amplification test (NAAT)performed on the
[employer] platform.
[2023-06-07 11:00] VITALS: BP 138/81
[2023-06-07 12:09] LABS: Glucose - Point of Care 156 mg/dl (70-99)
--- NOTE | 2023-06-07 12:45 | PTOTSP ---
Speech Language Pathology
Pt seen for clinical bedside swallow evaluation. CT chest report questioning if the pt aspirates based on findings. Pt reported to SALES AND CUSTOMER RELATIONS REP that he coughs at least 1x/day when drinking, and he stated this has been the case for most of his life. P.O.
trials of regular solids and thin liquids provided. Pt reported slow passage of thin liquids into esophagus and possible pharyngeal retention with solids. No overt signs of aspiration.
Recommend:
(1) VSE given CT report, respiratory status, and reports of aspiration
(2) Regular solids/thin liquids pending VSE
(3) Aspiration precautions: single sips, slow rate, sit upright
(4) Meds whole with single sip of liquid or whole in puree
(5) SALES AND CUSTOMER RELATIONS REP to continue to follow
[2023-06-07] MEDS: NOVOLOG FLEXPEN-LOW RESISTANCE 1 UNITS SC ×2 (13:16→18:25)
[2023-06-07 15:00] VITALS: BP 128/89
--- NOTE | 2023-06-07 15:09 | PTCARENOTE ---
Per Dr. Alize BLANCO to DC Tele. Pt does not meet criteria and Cards not following.
--- NOTE | 2023-06-07 16:03 | W.PN.HOSP.TC ---
Today's Communication/Plan
-
Continue antibiotics, changed to Zosyn broaden spectrum coverage.
Continue corticosteroids.
Speech and swallow evaluation including VSE in a.m.
Attempt to wean off oxygen as tolerates
Assessment / Plan
Assessment / Plan
-
IMPRESSION:
Acute hypoxic respiratory failure.
Acute COPD exacerbation
Acute asthmatic bronchitis.
ITALO?� CKD.
Hyponatremia sodium 131
Elevated pro CHF BNP
Bilateral pulmonary nodules.
Active tobacco smoker 1 pack a day [id number]
PLAN:
Acute hypoxic respiratory failure
-Presents with hypoxia and pulse ox in the upper 80s on room air.
-Lower extremity Doppler with no evidence of venous thrombosis, echo with new moderate aortic stenosis and preserved ejection fraction.
-Suspect COPD exacerbation, less likely PE given negative lower extremity Doppler, CT of chest.
-Normal D-dimer.
-CT chest findings negative for pulmonary embolism, bilateral groundglass infiltrates, severe emphysema
-No evidence of chronic CO2 retention
-Speech and swallow evaluation/VSE
-Continue antibiotics, steroids, DuoNeb.
-Continue oxygen supplementation, high flow oxygen if necessary, may need BiPAP.
-Attempt to wean off as tolerated.
Acute COPD exacerbation
-CT chest 04/25 with stable, multiple bilateral pulmonary nodules, followed by Dr. Bailey.
-Chest x-ray with hyperinflation no infiltrates.
-Productive cough, continue mucolytics.
-Incentive spirometry.
-Consider chest physiotherapy and fast if difficulties mobilizing secretions
-Antibiotics ceftriaxone/Zithromax.
-Corticosteroids Decadron.
-Inhaled steroids Pulmicort.
-DuoNebs
-Acapella
-Pulmonology evaluation appreciated.
-Extensive counseled about quitting tobacco smoking.
Leukocytosis
-Most likely due to corticosteroids.
-Continue antibiotics.
ITALO versus CKD.
-Creatinine now stable at baseline 0.9.
-Bladder scan for retention
-Urinalysis with urine creatinine of 99 high urine sodium of 24 indicating optimize renal function with mild volume contraction.
-Consider renal sonogram.
Elevated pro CHF BNP.
-Not volume overloaded on presentation.
-Most recent echocardiogram 11/17 with preserved biventricular function and no evidence of pulmonary hypertension
-Repeat echocardiogram with normal left ventricular size, wall thickness, systolic function with mild aortic stenosis but preserved LV EF.
-Follow volume status closely.
-PT/OT
Full code.
DVT prophylaxis heparin
Anticipated Discharge: > 48 hours
Subjective/Interval History
-
Date of Service: June 07, 2023
Objective Data
-
Labs:
Laboratory Results
06/07/23
07:34
WBC 12.6 H
Hgb 12.6 L
Hct 35.6 L
Plt Count 204
Sodium 133 L
Potassium 4.4
Chloride 106
Carbon Dioxide 23
BUN 24 H
Creatinine 0.9
Glucose 135 H
Calcium 8.8
Vital Signs:
Vital Signs
Temp Pulse Resp BP Pulse Ox
98.0 F 103 18 128/89 94
06/07/23 15:00 06/07/23 15:45 06/07/23 15:45 06/07/23 15:00 06/07/23 15:45
I&O
06/06/23 06/07/23 06/08/23
06:59 06:59 06:59
Intake Total 1500 / 1500 2139 / 214
Output Total 2124 / 2124 1450 / 1450
Balance -625 / -625 690 / 690
Physical Exam
-
General: Well Developed and No Apparent Distress
HEENT: Normocephalic, Atraumatic and Moist Mucous Membranes
Respiratory: Clear to Auscultation
Cardiac: Regular Rhythm and S1/S2; Negative Murmur, Rub or Gallop
GI: Soft, Nontender, Nondistended and Normal Bowel Sounds; Negative Organomegaly
Rectal: Deferred by Provider
Musculoskeletal: No Clubbing, No Cyanosis and No Edema
Skin: Negative Rash
Neuro: Nonfocal/Grossly Intact
[2023-06-07 17:56] LABS: Glucose - Point of Care 157 mg/dl (70-99)
[2023-06-07 19:16] VITALS: BP 145/71
[2023-06-07 21:16] LABS: Glucose - Point of Care 172 mg/dl (70-99)
[2023-06-07 22:53] VITALS: BP 152/77
[2023-06-08 02:30] VITALS: BP 110/70
[2023-06-08] MEDS: ZOSYN 50 IV ×3 (05:16→18:42)
[2023-06-08 07:00] VITALS: BP 147/73
[2023-06-08 07:51] LABS: Glucose - Point of Care 199 mg/dl (70-99)
[2023-06-08] MEDS: PULMICORT 0.5 MG INH ×2 (07:52→21:10)
[2023-06-08] MEDS: DUONEB 3 ML INH ×4 (07:52→21:10)
[2023-06-08 07:57] LABS: % Basophils 0.2 % (0-2); % Immature Granulocytes 0.9 % (0-0.5); % Lymphocytes 9.6 % (20.5-51.1); % Monocytes 5.5 % (1.7-9.3); % Neutrophils 83.8 % (42.2-75.2); Absolute Immature Granulocytes 0.1 10^3/uL (0-0.05); Absolute Monocytes 0.6 10^3/uL (0.1-0.6); Absolute Neutrophils 8.7 10^3/uL (1.4-6.5); Hematocrit 38.9 % (39.0-52.0); Hemoglobin 13.3 g/dL (13.0-18.0); Mean Corp Hgb Conc. 34.2 g/dL (33.0-37.0); Mean Corpuscular Volume 87.6 fL (80.0-94.0); Mean Platelet Volume 9.8 fL (7.4-10.4); Nucleated Red Blood Cells % 0 % (-); Platelet Count 230 10^3/uL (130-400); Red Blood Cell Count 4.44 10^6/uL (4.70-6.10); Red Cell Dist. Width 13.3 % (11.5-14.5); White Blood Cell Count 10.3 10^3/uL (4.8-10.8)
--- NOTE | 2023-06-08 08:06 | W.PN.PUL.V3 ---
Today's Communication / Plan
-
Decrease Decadron
Wean oxygen
Video swallow noted
Speech therapy following
Assessment
-
78-year-old male active smoker with probable underlying COPD presented with increasing shortness of breath felt to have a significant COPD exacerbation and pulmonary was consulted for COPD exacerbation 06/05/2023.
Assessment
COPD Gold stage III with acute exacerbation
Leukocytosis
Hyponatremia-serum sodium 131
ITALO-serum creatinine 1.6
Hyperglycemia-blood sugar 144-A1c 5.8
Conditions present prior to admission:
COPD
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
Active smoker
Hyperplastic polyp in sigmoid
Plan
Patient requires admission for severe COPD exacerbation and respiratory failure
Attempt to wean supplemental oxygen
Will need to assess discharge supplemental oxygen needs prior to discharge-told patient he will likely need oxygen at least temporarily at the time of discharge
BiPAP if needed -has not needed
Speech therapy following
Video swallow noted, moderate residue in the esophagus, poor clearing, prominent cricopharyngeus
Duonebs continue in addition to Pulmicort nebulizers
Mucolytic's continue
Decadron 4 mg IV every 8 hours-decrease to every 12 hours
Incentive spirometry
Acapella
Bedside spirometry 06/06/23-FEV1 1.29-42%, FVC 2.7 to-64%, moderate to severe obstruction
Cultures reviewed
Empiric antibiotics- Rocephin and azithromycin initiated-now on Zosyn
Follow leukocytosis
Monitor blood sugars
Insulin supplementation as needed
Smoking cessation counseling ongoing.
Nicotine patch continues
DVT prophylaxis-on subcutaneous heparin
GI prophylaxis recommended if on steroids for prolonged period
Nutrition
Increased mobility
Reviewed with nursing
Outpatient pulmonary [id number] PFTs, ongoing smoking cessation counseling, pulmonary rehabilitation, as well as yearly low-dose lung cancer screening CT while eligible
Diagnostic data:
Chest x-ray 06/04/2023- NAD
CT chest 10/17/2021-scattered bilateral tiny pulmonary nodules, stable COPD changes, chronic mild T7 compression deformity
CT chest low-dose 04/06/2023-stable bilateral solid calcified and noncalcified pulmonary nodules, moderate COPD, moderate compression fracture slightly progressed
Ultrasound 06/05/2023Lower extremity-no DVT
Echocardiogram 11/09/2017-EF 55-60%, normal diastolic function, aortic sclerosis without stenosis
Bedside spirometry 06/06/23-FEV1 1.29-42%, FVC 2.7 to-64%, moderate to severe obstruction
Subjective Data
-
Date of Service:
Date of Service: June 08, 2023
Chief Complaint: Pulmonary Follow Up and Dyspnea Follow Up
Subjective:
No complaints of worsening shortness of breath, no chest pain, productive cough, or abdominal pain
Review of Systems
General: Other (Per HPI)
Objective Data
Data Reviewed
Vital Signs / I&O:
Vital Signs
Temp Pulse Resp BP Pulse Ox
97.9 F 92 18 147/73 95
06/08/23 07:00 06/08/23 07:00 06/08/23 07:00 06/08/23 07:00 06/08/23 07:00
Intake and Output
06/07/23 06/08/23 06/09/23
06:59 06:59 06:59
Intake Total 2240 / 2240 1060 / 1060
Output Total 1450 / 1450 1675 / 1675
Balance 790 / 790 -615 / -615
SaO2: 95
Nasal Cannula flow liters per minute: 5
Physical Exam
General: Respiratory Distress (n) and Comfortable
HEENT: Normocephalic, Anicteric and Moist Mucous Membranes
Cardiovascular: Regular Rhythm
Respiratory: Wheeze ( forced expiratory), Crackles ( rare basilar), Rhonchi (n), Non-Labored Respirations, Accessory Resp Muscle Use (n) and Stridor (n)
GI: Soft, Non Distended and Non Tender
Neurology: Awake, Alert and No Motor Deficits
Skin: Warm, Good Color, Cyanosis (n) and Jaundice (n)
Labs/Micro/Reports
Lab Data
06/08/23 06:45
[2023-06-08] MEDS: MUCINEX 1200 MG PO ×2 (08:16→20:12)
[2023-06-08] MEDS: NICODERM TRANSDERMAL 21 MG TRANSDERM (08:16)
[2023-06-08] MEDS: HEPARIN 5000 UNITS SC ×2 (08:16→18:42)
[2023-06-08] MEDS: DECADRON 4 MG IV ×2 (08:17→20:12)
[2023-06-08] MEDS: NOVOLOG FLEXPEN-LOW RESISTANCE 1 UNITS SC ×2 (08:17→18:41)
[2023-06-08] MEDS: ZITHROMAX 250 MG PO (08:18)
[2023-06-08 08:28] LABS: Blood Urea Nitrogen 28 mg/dl (9-20); Calcium 9.4 mg/dl (8.4-10.2); Carbon Dioxide 24 mmol/L (22-30); Chloride 101 mmol/L (98-107); Estimated Creatinine Clearance 58 ml/min; Glucose 125 mg/dl (70-99); Potassium 4.5 mmol/L (3.5-5.1); Sodium 137 mmol/L (135-145); eGFR > 60.00
--- NOTE | 2023-06-08 09:00 | PTOTSP ---
Speech Language Pathology
VIDEOFLUOROSCOPIC SWALLOWING EXAMINATION (VSE) completed. Overall, pt with mild pharyngeal dysphagia characterized by intermittent laryngeal penetration (no aspiration visualized) and pharyngeal residue. Esophageal sweep also demonstrated residue.
Recommend:
(1) Regular solids/thin liquids
(2) Aspiration precautions: sit upright during meals and for at least 30 minutes post meals, slow rate, single sips, intermittent cough/reswallow
(3) Meds whole with sip of liquid if able to take single sip. Otherwise, whole in puree.
(4) Consider OP GI and OP dysphagia therapy (provided pt with outpatient handouts)
(5) CHEST PAIN COORDINATOR to continue to follow
--- NOTE | 2023-06-08 10:46 | PTCARENOTE ---
Pt weaned to 4L 02- SpO2 95% at this time.
[2023-06-08 11:00] VITALS: BP 157/79
[2023-06-08 11:54] LABS: Glucose - Point of Care 143 mg/dl (70-99)
[2023-06-08] MEDS: NOVOLOG FLEXPEN-LOW RESISTANCE SC (12:35)
--- NOTE | 2023-06-08 12:40 | W.PN.HOSP.TC ---
Addendum entered and electronically signed by Bear Denney MD 06/08/23 16:58:
Patient seen and examined
Discussed with resident
Discussed with patient's at the bedside.
Impression/plan:
Acute hypoxic respiratory failure secondary to COPD exacerbation
COPD exacerbation with acute bronchitis.
Slow improvement.
Able to wean off oxygen supplementation from 6 to 3-1/2 L today.
Tolerates activity better.
Additional imaging with CT of the chest consistent with severe emphysema, negative for pulmonary embolism or focal infiltrates.
Antibiotics broadened to Zosyn (potentially covering Pseudomonas) with now decreasing and normalizing WBC while on corticosteroids.
Start corticosteroid taper, Decadron dose decreased.
Attempt to wean off oxygen as much as possible, although most likely will require revision of home O2 upon discharge
Home O2 assessment in a.m.
Speech evaluation appreciated. VSE with no overt aspiration. Continue regular consistency diet and thin liquids. Continue aspiration precautions
Original Note:
Today's Communication/Plan
-
VSE with prominent cricopharyngeus likely source of aspiration pneumonia.
White count normalized with Zosyn, continue antibiotics.
Continue corticosteroids.
Speech pathologist following.
Attempt to wean off oxygen as tolerated.
Assessment / Plan
Assessment / Plan
-
IMPRESSION:
Presentation with hypoxia and acute on chronic hypoxic respiratory failure.
Acute COPD exacerbation
Acute asthmatic bronchitis.
ITALO?� CKD.
Hyponatremia sodium 131
Elevated pro CHF BNP
Bilateral pulmonary nodules.
Active tobacco smoker 1 pack a day [id number]
PLAN:
Presentation with hypoxia and acute on chronic hypoxic respiratory failure.
-Prior PE studies unremarkable including LV Doppler, CT chest, and D-dimer.
-CT chest PE study with increased groundglass infiltrates with severe emphysema, suggesting inflammation/Infection likely due to aspiration pneumonia.
-VSE with prominent cricopharyngeus likely source of aspiration/infection.
-Speech pathologist following.
-White blood count normalized with Zosyn, continue antibiotics.
-Continue corticosteroid, DuoNebs
-Wean off oxygen as tolerated.
Acute COPD exacerbation
-CT chest 04/25 with stable, multiple bilateral pulmonary nodules, followed by Dr. Bailey.
-Chest x-ray with hyperinflation no infiltrates.
-Productive cough, continue mucolytics and DuoNebs.
-Incentive spirometry.
-Consider chest physiotherapy and fast if difficulties mobilizing secretions
-Continue Zosyn/Zithromax.
-Continue corticosteroids Decadron.
-Continue inhaled steroids Pulmicort.
-Acapella
-Pulmonology evaluation appreciated.
-Extensive counseled about quitting tobacco smoking.
Leukocytosis
-Resolved with treatment with Zosyn.
-Continue antibiotics.
ITALO versus CKD.
-Creatinine now stable at baseline 1.1
-Bladder scan for retention
Elevated pro CHF BNP.
-Not volume overloaded on presentation.
-Most recent echocardiogram 11/17 with preserved biventricular function and no evidence of pulmonary hypertension
-Repeat echocardiogram with normal left ventricular size, wall thickness, systolic function with mild aortic stenosis but preserved LV EF.
-Follow volume status closely.
-PT/OT
Full code.
DVT prophylaxis heparin
Anticipated Discharge: 24 - 48 hours
Subjective/Interval History
-
Date of Service: June 08, 2023
Objective Data
-
Labs:
Laboratory Results
06/08/23
06:45
WBC 10.3
Hgb 13.3
Hct 38.9 L
Plt Count 230
Sodium 137
Potassium 4.5
Chloride 101
Carbon Dioxide 24
BUN 28 H
Creatinine 1.1
Glucose 125 H
Calcium 9.4
Vital Signs:
Vital Signs
Temp Pulse Resp BP Pulse Ox
98.0 F 99 20 157/79 95
06/08/23 11:00 06/08/23 11:53 06/08/23 11:53 06/08/23 11:00 06/08/23 11:53
I&O
06/07/23 06/08/23 06/09/23
06:59 06:59 06:59
Intake Total 2240 / 2240 1060 / 1060
Output Total 1450 / 1450 1675 / 1675
Balance 790 / 790 -615 / -615
Review of Systems
-
History Source: Patient
All other systems: Not reviewed unless documented
Constitutional: Reports No Symptoms; Denies Fever
EENT: Reports No Symptoms Reported
Respiratory: Reports No Symptoms
Cardiac: Reports No Symptoms; Denies Chest Pain or Palpitations
Abdomen/GI: Reports No Symptoms; Denies Abdominal Pain, Diarrhea or Constipated
Genitourinary: Reports No Symptoms
Neuro: Reports No Symptoms; Denies Headache or Weakness
Physical Exam
-
General: Well Developed and No Apparent Distress
HEENT: Normocephalic, Atraumatic and Moist Mucous Membranes
Respiratory: Clear to Auscultation
Cardiac: Regular Rhythm and S1/S2; Negative Rub or Gallop
GI: Soft, Nontender, Nondistended and Normal Bowel Sounds; Negative Organomegaly
Rectal: Deferred by Provider
Musculoskeletal: No Clubbing, No Cyanosis and No Edema
Skin: Negative Rash
Neuro: Awake, Alert, Oriented, AO x 3 and Nonfocal/Grossly Intact
Psych: Calm and Intact Judgement/Insight
Data Reviewed
-
Diagnostic Radiology: Image personally visualized and interpreted, Report Reviewed by me and Discussed with Physician
Ultrasound: Image personally visualized and interpreted, Report Reviewed by me and Discussed with Physician
Medical Tests (Nuc Med, Echo etc): Image personally visualized and interpreted, Report Reviewed by me and Discussed with Physician
Labs: Labs Reviewed by me and Discussed with Physician
Old Records: Reviewed
--- NOTE | 2023-06-08 12:59 | PN.CDI ---
CDI
- -
CDI:
Physician Documentation Request
Admit Date: 06/04/23 14:38
Dear Doctor Олег,
The diagnosis of bilateral pneumonia/groundglass infiltrates was documented on 06/05 in hospitalist progress notes, but is not consistently noted in subsequent documentation.
Please clarify the following:
____ - pneumonia was present on admission
____ - pneumonia was ruled out
____ - pneumonia is still a likely, suspected, probable diagnosis
____ - Other
Use of terms such as suspected, likely, concern for, or probable (associated with a specific diagnosis that is being evaluated, monitored, or treated as if it exists) are acceptable and can be coded in the inpatient setting, when documented at the
time of discharge.
Thank you,
Iwona Caba RN, BSN
CDI Specialist
tiger text
Please use your independent medical judgment in providing your response.
[2023-06-08 15:00] VITALS: BP 152/82
--- NOTE | 2023-06-08 15:44 | CM ---
Patient seen, reports no new concerns. Per Hospitalist note, wean oxygen as tolerated, watch for home O2 needs. CM will continue to follow for discharge planning needs.
Plan; home no needs vs VN, watch for home O2 needs.
[2023-06-08 16:54] LABS: Glucose - Point of Care 152 mg/dl (70-99)
[2023-06-08] MEDS: DECADRON IV (18:45)
[2023-06-08 21:18] LABS: Glucose - Point of Care 117 mg/dl (70-99)
[2023-06-08 23:00] VITALS: BP 129/67
[2023-06-09] MEDS: HEPARIN 5000 UNITS SC ×4 (01:13→23:05)
[2023-06-09] MEDS: ZOSYN 50 IV ×5 (01:13→23:05)
[2023-06-09 07:25] LABS: Glucose - Point of Care 118 mg/dl (70-99)
[2023-06-09] MEDS: NOVOLOG FLEXPEN-LOW RESISTANCE SC ×3 (07:26→16:30)
[2023-06-09] MEDS: ZITHROMAX 250 MG PO (07:27)
[2023-06-09] MEDS: NICODERM TRANSDERMAL 21 MG TRANSDERM (07:27)
[2023-06-09] MEDS: MUCINEX 1200 MG PO ×2 (07:27→20:38)
[2023-06-09] MEDS: DECADRON 4 MG IV (07:28)
[2023-06-09] MEDS: PULMICORT 0.5 MG INH ×2 (08:03→20:13)
[2023-06-09] MEDS: DUONEB 3 ML INH ×4 (08:03→20:13)
[2023-06-09 08:11] VITALS: BP 118/76
--- NOTE | 2023-06-09 11:00 | W.PN.HOSP.TC ---
Addendum entered and electronically signed by German Coombs MD 06/20/23 15:12:
Pneumonia still likely diagnosis in relation to aspiration event in combination with COPD
Original Note:
Today's Communication/Plan
-
Will await pulmonary titration of further steroid
Will need home oxygen screen prior to discharge plan probably in next 24 hours
Increase activity
Assessment / Plan
Assessment / Plan
-
IMPRESSION:
Presentation with hypoxia and acute on chronic hypoxic respiratory failure.
Acute COPD exacerbation
Acute asthmatic bronchitis.
ITALO?� CKD.
Hyponatremia sodium 131
Elevated pro CHF BNP
Bilateral pulmonary nodules.
Active tobacco smoker 1 pack a day [id number]
PLAN:
Presentation with hypoxia and acute on chronic hypoxic respiratory failure.
-Prior PE studies unremarkable including LV Doppler, CT chest, and D-dimer.
-CT chest PE study with increased groundglass infiltrates with severe emphysema, suggesting inflammation/Infection likely due to aspiration pneumonia.
-VSE with prominent cricopharyngeus likely source of aspiration/infection.
-Speech pathologist following.
-White blood count normalized with Zosyn, continue antibiotics.
-Continue corticosteroid, DuoNebs
-Wean off oxygen as tolerated./Will need home O2 screen
Acute COPD exacerbation
-CT chest 04/25 with stable, multiple bilateral pulmonary nodules, followed by Dr. Bailey.
-Chest x-ray with hyperinflation no infiltrates.
-Productive cough, continue mucolytics and DuoNebs.
-Incentive spirometry.
-Consider chest physiotherapy and fast if difficulties mobilizing secretions
-Continue Zosyn/Zithromax.
-Continue corticosteroids Decadron.>> Will await transition to prednisone by pulmonary
-Continue inhaled steroids Pulmicort.
-Acapella
-Pulmonology evaluation appreciated.
-Extensive counseled about quitting tobacco smoking.
Leukocytosis
-Resolved with treatment with Zosyn.
-Continue antibiotics.
ITALO versus CKD.
-Creatinine now stable at baseline 1.1
-Bladder scan for retention
Elevated pro CHF BNP.
-Not volume overloaded on presentation.
-Most recent echocardiogram 11/17 with preserved biventricular function and no evidence of pulmonary hypertension
-Repeat echocardiogram with normal left ventricular size, wall thickness, systolic function with mild aortic stenosis but preserved LV EF.
-Follow volume status closely.
-PT/OT
Full code.
DVT prophylaxis heparin
Anticipated Discharge: Within 24 hours
Subjective/Interval History
-
Date of Service: June 09, 2023
Doing better remains on 3 L nasal flow oxygen titration of IV steroids further tapered yesterday no present distress
Objective Data
-
Vital Signs:
Vital Signs
Temp Pulse Resp BP Pulse Ox
97.7 F 62 18 118/76 94
06/09/23 08:11 06/09/23 08:11 06/09/23 08:11 06/09/23 08:11 06/09/23 10:25
I&O
06/08/23 06/09/23 06/10/23
06:59 06:59 07:59
Intake Total 1060 / 1060 1520 / 1520
Output Total 1675 / 1675 1050 / 1050
Balance -615 / -615 470 / 470
Review of Systems
-
History Source: Patient
Constitutional: Reports No Symptoms
Respiratory: Reports Trouble Breathing
Cardiac: Reports No Symptoms
Abdomen/GI: Reports No Symptoms
Physical Exam
-
General: No Apparent Distress
Respiratory: Rhonchi and Decreased Breath Sounds; Negative Wheezes
Cardiac: Regular Rhythm
GI: Soft
Psych: Calm
Data Reviewed
-
Total Time Spent with Patient (in minutes): 56
Diagnostic Radiology: Report Reviewed by me
Labs: Labs Reviewed by me
[2023-06-09 11:31] LABS: Glucose - Point of Care 125 mg/dl (70-99)
--- NOTE | 2023-06-09 12:18 | W.PN.PUL3 ---
Today's Communication / Plan
-
Home O2 eval showing O2 tata 89%, no need for O2
Can transition IV steroids to PO, taper at discharge
Outpatient pulmonary FU recommended
Discharge planning per team
Assessment
-
78-year-old male active smoker with probable underlying COPD presented with increasing shortness of breath felt to have a significant COPD exacerbation and pulmonary was consulted for COPD exacerbation 06/05/2023.
COPD Gold stage III with acute exacerbation
Leukocytosis
Hyponatremia-serum sodium 131
ITALO-serum creatinine 1.6
Hyperglycemia-blood sugar 144-A1c 5.8
Conditions present prior to admission:
COPD
Multiple bilateral pulmonary nodules followed by Dr. Bailey-no acid changer many years
Active smoker
Hyperplastic polyp in sigmoid
Plan
--> Home O2 eval - 89% on room air, 93% at rest
Patient requires admission for severe COPD exacerbation and respiratory failure-improving
BiPAP if needed -has not needed
Speech therapy following
Video swallow noted, moderate residue in the esophagus, poor clearing, prominent cricopharyngeus
Duonebs continue in addition to Pulmicort nebulizers
Mucolytic's continue
Decadron 4 mg IV every 8 hours-decrease to every 12 hours--transition to prednisone
Incentive spirometry
Acapella
Bedside spirometry 06/06/23-FEV1 1.29-42%, FVC 2.7 to-64%, moderate to severe obstruction
Cultures reviewed
Empiric antibiotics- Rocephin and azithromycin initiated-now on Zosyn
Follow leukocytosis
Monitor blood sugars
Insulin supplementation as needed
Smoking cessation counseling ongoing.
Nicotine patch continues
DVT prophylaxis-on subcutaneous heparin
GI prophylaxis recommended if on steroids for prolonged period
Nutrition
Increased mobility
Reviewed with nursing
Outpatient pulmonary [id number] PFTs, ongoing smoking cessation counseling, pulmonary rehabilitation, as well as yearly low-dose lung cancer screening CT while eligible
Diagnostic data:
Chest x-ray 06/04/2023- NAD
CT chest 10/17/2021-scattered bilateral tiny pulmonary nodules, stable COPD changes, chronic mild T7 compression deformity
CT chest low-dose 04/06/2023-stable bilateral solid calcified and noncalcified pulmonary nodules, moderate COPD, moderate compression fracture slightly progressed
Ultrasound 06/05/2023Lower extremity-no DVT
Echocardiogram 11/09/2017-EF 55-60%, normal diastolic function, aortic sclerosis without stenosis
Bedside spirometry 06/06/23-FEV1 1.29-42%, FVC 2.7 to-64%, moderate to severe obstruction
Subjective Data
-
Date of Service:
Date of Service: June 09, 2023
Chief Complaint: Pulmonary Follow Up and Dyspnea Follow Up
Subjective:
Feeling better, less SOB
Remains on 2L NC but was able to ambulate without it, O2 tata 89%
Would like to go home
Objective Data
Data Reviewed
Vital Signs / I&O / Oxygen:
Vital Signs
Temp Pulse Resp BP Pulse Ox
97.7 F 88 18 118/76 94
06/09/23 08:11 06/09/23 11:45 06/09/23 11:45 06/09/23 08:11 06/09/23 10:25
Intake and Output
06/08/23 06/09/23 06/10/23
06:59 06:59 07:59
Intake Total 1060 / 1060 1520 / 1520
Output Total 1675 / 1675 1050 / 1050
Balance -615 / -615 470 / 470
SaO2 94
Nasal Cannula flow liters per 3
minute
Physical Exam
General: Respiratory Distress (n) and Comfortable
HEENT: Normocephalic, Anicteric and Moist Mucous Membranes
Cardiovascular: Regular Rhythm
Respiratory: Crackles (rare basilar), Rhonchi (n), Non-Labored Respirations, Accessory Resp Muscle Use (n) and Stridor (n)
GI: Soft, Non Distended and Non Tender
Neurology: Awake, Alert, Oriented, AO x 3 and No Motor Deficits
Skin: Warm, Good Color, Cyanosis (n) and Jaundice (n)
Labs/Micro/Reports
Lab Data
06/08/23 06:45
06/08/23 06:45
[2023-06-09 14:33] VITALS: BP 120/77
[2023-06-09 16:28] LABS: Glucose - Point of Care 124 mg/dl (70-99)
[2023-06-09 21:16] LABS: Glucose - Point of Care 128 mg/dl (70-99)
[2023-06-09 23:00] VITALS: BP 145/70
[2023-06-10] MEDS: ZOSYN 50 IV (05:05)
[2023-06-10 07:24] VITALS: BP 116/25
[2023-06-10 07:47] LABS: Glucose - Point of Care 92 mg/dl (70-99)
[2023-06-10] MEDS: NOVOLOG FLEXPEN-LOW RESISTANCE SC (07:54)
[2023-06-10] MEDS: PULMICORT 0.5 MG INH (07:58)
[2023-06-10] MEDS: DUONEB 3 ML INH (07:58)
[2023-06-10] MEDS: DELTASONE 40 MG PO (09:00)
[2023-06-10] MEDS: NICODERM TRANSDERMAL 21 MG TRANSDERM (09:00)
[2023-06-10] MEDS: ZITHROMAX 250 MG PO (09:00)
[2023-06-10] MEDS: HEPARIN 5000 UNITS SC (09:00)
[2023-06-10] MEDS: MUCINEX 1200 MG PO (09:00)
--- NOTE | 2023-06-10 09:33 | W.DS.TRANS ---
DC Summary - Customer Order Clerk
-
Discharge Instructions:
Discharge Diagnosis/Procedures COPD exacerbation acute
Resolved leukocytosis
Diet No restrictions
Activity As tolerated
Driving Restrictions As prior to admission
Instructions:
Stand-Alone Forms:
Changes to Home Medications: Yes
Discharge Medications:
DC Medications w/original date entered in [facility]
Metamucil 1 dose PO DAILYPRN PRN constipation 06/04/23
albuterol sulfate 90 mcg/actuation aerosol inhaler 2 puff inhalation QID PRN shortness of breath or wheezing #6.7 grams 06/10/23
azithromycin 250 mg tablet 250 mg PO DAILY #5 tabs 06/10/23
guaifenesin 600 mg tablet, extended release 12 hr 1,200 mg PO Q12 #14 tabs 06/10/23
prednisone 10 mg tablet See Rx Instructions .Route .COMPLEX #30 tabs 06/10/23
Home Medication Changes
Pending Results: No
Total time spent discharging patient (in min): 38
--- NOTE | 2023-06-10 10:43 | W.DCSUMMARY ---
Discharge Summary
Discharge Data
Date of Admission: 06/04/23
Date of Discharge: 06/10/23
-
Pending Results: No
Hospital Course
This is a 78-year-old male who is an active smoker with probable underlying COPD but never been diagnosed in the past presented with increasing shortness of breath and consistent findings were significant COPD exacerbation and after admission and
pulmonary consultation considered a Gold stage III with acute exacerbation he presented with leukocytosis and hypoxemia requiring low-flow volumes of oxygen during hospitalization. Chest x-ray showed multiple bilateral pulmonary nodules and he is
followed by Dr. Bailey with no change in status over many years in the past. As mentioned he is an active smoker and was admonished to quit completely he was placed on a NicoDerm patch during hospitalization. There was some question of possible
dysphagia also and a video swallow was performed showing moderate residue in the esophagus with poor clearing and prominent cricopharyngeal GL changes. Mucolytic's with continued IV steroids were tapered to transition to a prednisone taper prior to
his discharge with good result. He was instructed on incentive spirometry and Acapella usage. A bedside spirometry was performed showing an FEV1 of 1.29 which is 42% of predicted capacity along with a vital capacity of 64% consistent with moderate
to severe obstruction/he underwent a home O2 evaluation but did not qualify for oxygen therapy only dropping to 89% on exertion without requirement on room air. He was placed on empiric course of ceftriaxone and Zithromax and at time of discharge
was placed on azithromycin 250 mg for next 5 days and to follow a scheduled steroid taper as outlined. These instructions were given to him in the presence of his son who also acknowledged agreement and understanding. It is agreed also the patient
will require pulmonary follow-up and numbers have been given for that
Discharge Plan
-
Patient Disposition: Home (Routine Discharge)
Discharge Diagnosis/Procedures: COPD exacerbation acute
Resolved leukocytosis
Diet: No restrictions
Activity: As tolerated
Additional Activity: Stop smoking
Driving Restrictions: As prior to admission
Referrals:
Alan Bailey, DO [Family Provider] -
Gray Robins MD [Active] - in one to two weeks (Dr. Robins or [facility] [facility] [employer] [facility]-eventual full PFTs, yearly low-dose lung cancer screening CT, consideration towards pulmonary rehabilitation and inhalers)
Prescriptions:
New
guaifenesin 600 mg Tablet Extended Release 12hr
1,200 mg PO Q12 Qty: 14 0RF
azithromycin 250 mg Tablet
250 mg PO DAILY Qty: 5 0RF
albuterol sulfate 90 mcg/actuation HFA aerosol inhaler
2 puff inhalation QID PRN (Reason: shortness of breath or wheezing) Qty: 6.7 0RF
prednisone 10 mg Tablet
See Rx Instructions .ROUTE .COMPLEX Qty: 30 0RF
Rx Instructions:
Take By Mouth:
40 mg daily x3 days, 30 mg daily x3 days,
20 mg daily x3 days, 10 mg daily x3 days.
Continued
Metamucil
1 dose PO DAILYPRN PRN (Reason: constipation)
Discharge Orders:
Discharge Patient (As Directed); Ordered 06/10/23
Ordered By: German Coombs
Discharge Date and Time
Discharge Date/Time: 06/10/23 10:16
--- NOTE | 2023-06-10 12:23 | CM ---
SW spoke with son and pt at bedside prior to dc.
Referral sent to [facility] per son request to check Pulse Ox post dc.
IMM signed and on chart. Son to provide transport home.
--- NOTE | 2023-06-14 09:11 | PN.CDI ---
CDI
- -
CDI:
Physician Documentation Request
Admit Date: 06/04/23 14:38
Dear Doctor Malvin,
The diagnosis of bilateral pneumonia/groundglass infiltrates was documented on 06/05 in hospitalist progress notes, but is not consistently noted in subsequent documentation.
Patient received Ceftriaxone, Zithromax and Zosyn while hospitalized.
Please clarify the following:
____ - pneumonia was present on admission
____ - pneumonia was ruled out
____ - pneumonia is still a likely, suspected, probable diagnosis
____ - Other
Use of terms such as suspected, likely, concern for, or probable (associated with a specific diagnosis that is being evaluated, monitored, or treated as if it exists) are acceptable and can be coded in the inpatient setting, when documented at the
time of discharge.
Thank you,
Iwona Caba RN, BSN
CDI Specialist
tiger text
Please use your independent medical judgment in providing your response.
== END 2023-06-10 10:16 | disposition home or self-care (01) | DRG 190 ==
LOC: 4 WEST ACU 14:38
PROVIDERS: Physician Assistant; ADMITTING PHYSICIAN Internal Medicine; ATTENDING PHYSICIAN Internal Medicine; CONSULT PHYSICIAN Internal Medicine Critical Care Medicine; EMERGENCY PHYSICIAN Student in an Organized Health Care Education/Training Program; FAMILY PHYSICIAN Family Medicine
DX: J44.1 Chronic obstructive pulmonary disease with (acute) exacerbation (principal); J69.0 Pneumonitis due to inhalation of food and vomit; J96.01 Acute respiratory failure with hypoxia; E87.1 Hypo-osmolality and hyponatremia; N17.9 Acute kidney failure, unspecified; F17.210 Nicotine dependence, cigarettes, uncomplicated; R73.9 Hyperglycemia, unspecified; J44.0 Chronic obstructive pulmonary disease with (acute) lower respiratory infection
CPT/HCPCS: 71046; 71275; 74230; 80048; 80053; 81003; 81015; 82570; 82962; 83036; 83880; 84300; 84484; 85025; 85379; 87502; 87811; 92610; 92611; 93005; 93306; 93970; 94060; 94640; 96374; 99291; 99406; Q9967

== ENCOUNTER → 2023-08-03 13:45 | Outpatient (REF) | payer MEDICARE, OTHER, SELFPAY | LOC: HWRAD 13:45 | PROVIDERS: ATTENDING PHYSICIAN Nurse Practitioner Family; FAMILY PHYSICIAN Family Medicine | DX: R93.89 Abnormal findings on diagnostic imaging of other specified body structures (principal); Z87.01 Personal history of pneumonia (recurrent); R91.8 Other nonspecific abnormal finding of lung field | CPT/HCPCS: 71250 ==

== ENCOUNTER → 2024-01-31 08:19 | Outpatient (REF) | payer MEDICARE, OTHER, SELFPAY | LOC: HWRAD 08:19 | PROVIDERS: ATTENDING PHYSICIAN Internal Medicine Critical Care Medicine; FAMILY PHYSICIAN Family Medicine | DX: R06.02 Shortness of breath (principal); R91.8 Other nonspecific abnormal finding of lung field; Z87.891 Personal history of nicotine dependence | CPT/HCPCS: 71250 ==